=== PATIENT | female | born 1965 | race Caucasian/White ===

== ENCOUNTER 2021-08-24 14:14 | Emergency (ER) | payer SELFPAY ==
[2021-08-24] VITALS (11 sets, daily range): BP systolic 113–158; BP diastolic 68–98; PULSE 43–85; RESP 16–20; TEMP 36.8; O2SAT 94–100
--- NOTE | 2021-08-24 14:44 | W.ED.ABDPA2 ---
Documented by User: Agusto Menendez DO 08/25/21 14:32 HPI - Abdominal Pain General: Chief Complaint: Abdominal Pain Stated Complaint: FLANK PAIN Time Seen by Provider: 08/24/21 14:34 Source: patient Mode of arrival: EMS History of Present Illness: 55-year-old female comes in with flank pain she has had for the last 2 days. Is progressively worsening. She is not had any hematuria. No fever she has had some difficulty urinating. No history of kidney stones. She is given morphine in route which did relieve some of the pain. MD elicited complaint: flank pain Onset (ago): day(s) (2) Location: L flank Radiation: suprapubic Exacerbating factors: nothing Relieving factors: nothing Associated Symptoms: Reports GI cramping, nausea and poor appetite; Denies anorexia, belching, bloating, change in bowel habits, change in stool character, chills, coffee ground emesis, constipation, diarrhea, dyspepsia, dysuria, excessive flatus, fever(s), heartburn, hematochezia, hematuria, hematemesis, fecal incontinence, loose stools, melena, syncope and vomiting Review of Systems Const: Denies: fever(s), chills, fatigue or malaise ENMT: Denies: throat pain, ear or mastoid pain, nasal discharge or nasal congestion Card: Denies: syncope Resp: Denies: dyspnea, productive cough or non-productive cough GI: Reports: nausea and GI cramping; Denies: vomiting, hematemesis, coffee ground emesis, heartburn, diarrhea, constipation, bloating, belching, excessive flatus, fecal incontinence, change in bowel habits, change in stool character, hematochezia or melena : Denies: flank pain, difficulty voiding, dysuria, urinary frequency, urinary urgency or hematuria Skin/Breast: Denies: rash or pruritus PFSH ED PFSH: Medical History HTN (hypertension) Social History Smoking and tobacco status: never smoked Alcohol intake: current Alcohol intake frequency: few times a month Physical Exam Const: GENERAL APPEARANCE: cooperative and comfortable ORIENTATION/CONSCIOUSNESS: Yes awake, Yes oriented to person, Yes oriented to place and Yes oriented to time HENMT: COMMON NORMALS: normocephalic, atraumatic and hearing grossly normal bilaterally HEAD & SCALP: normocephalic and atraumatic Resp: COMMON NORMALS: normal respiratory effort, No retractions, No use of accessory muscles and clear to auscultation bilaterally AUSCULTATION: clear to auscultation bilaterally Cardio: COMMON NORMALS: regular rate, regular rhythm and No murmurs present (Cardio) RATE: regular rate RHYTHM: regular rhythm GI: COMMON NORMALS: Soft to palpation and No hepatosplenomegaly present AUSCULTATION: Yes normoactive bowel sounds PALPATION: Yes Soft to palpation, No Tenderness to palpation present (GI), No Guarding due to palpation present (GI) and Yes No hepatosplenomegaly present : BLADDER/KIDNEY EXAM: Yes CVA tenderness on the left Back/Pelvis: GENERAL BACK: Yes CVA tenderness Extremity: COMMON NORMALS: normal to inspection, capillary refill normal, no clubbing, cyanosis or edema, no calf tenderness and no pedal edema Neuro: SENSORIUM/ORIENTATION: Yes oriented to person, Yes oriented to place and Yes oriented to time Skin: COMMON NORMALS: no rashes or lesions noted GENERAL SKIN EXAM: no rashes or lesions noted Course Vital Signs: Vital signs: Vital Signs Temperature 98.3 F 08/24/21 14:51 Pulse Rate 67 08/24/21 20:36 Respiratory Rate 16 08/24/21 20:36 Blood Pressure 131/82 08/24/21 20:36 Pulse Oximetry 95 08/24/21 20:36 Oxygen Delivery Me thod 08/24/21 18:44 MDM - Abdominal Pain Medical Decision Making Care signed out to Dr. Cai at change of shift. See final notes for diagnosis and disposition. Lab Data : 08/24/21 15:59 08/24/21 15:59 Labs/Radiology: Radiology Impressions Abdomen/Pelvis CT 08/24/21 15:40 IMPRESSION: No renal stones. No acute findings. Lumbar Spine CT 08/24/21 17:25 IMPRESSION: L4-L5 broad-based disc bulge with mild spinal canal and moderate bilateral foraminal narrowing. Laboratory Results WBC 4.1 10^3/uL (4.0-10.0) 08/24/21 15:59 RBC 4.27 10^6/uL (4.1-5.3) 08/24/21 15:59 Hgb 12.4 g/dL (11.5-15.3) 08/24/21 15:59 Hct 35.7 % (37.0-47.0) L 08/24/21 15:59 MCV 83.6 fl (81-99) 08/24/21 15:59 MCH 29.0 pg (28.0-34.0) 08/24/21 15:59 MCHC 34.7 g/dL (30.0-36.0) 08/24/21 15:59 RDW 13.9 % (12.1-15.1) 08/24/21 15:59 Plt Count 265 10^3/cmm (130-400) 08/24/21 15:59 MPV 12.0 fL (7.4-10.4) H 08/24/21 15:59 Neut % (Auto) 38.7 % 08/24/21 15:59 Lymph % (Auto) 52.4 % 08/24/21 15:59 [place] % (Auto) 7.8 % 08/24/21 15:59 Eos % (Auto) 0.2 % 08/24/21 15:59 Baso % (Auto) 0.7 % 08/24/21 15:59 Neut # (Auto) 1.58 10^3/uL (1.8-7.7) L 08/24/21 15:59 Lymph # (Auto) 2.2 10^3/uL (0.8-4.8) 08/24/21 15:59 [place] # (Auto) 0.3 10^3/uL (0.2-0.9) 08/24/21 15:59 Eos # (Auto) 0.0 10^3/uL (0.0-0.8) 08/24/21 15:59 Baso # (Auto) 0.0 10^3/uL (0.0-0.1) 08/24/21 15:59 Nucleated RBC % (auto) 0 % 08/24/21 15:59 Nucleated RBCs # 0.0 /100WBC 08/24/21 15:59 Sodium 142 mmol/L (136-145) 08/24/21 15:59 Potassium 3.2 mmol/L (3.5-5.1) L 08/24/21 15:59 Chloride 106 mmol/L (98-107) 08/24/21 15:59 Carbon Dioxide 24 mmol/L (22-29) 08/24/21 15:59 Anion Gap 15.2 (5-19) 08/24/21 15:59 BUN 10 mg/dL (6-20) 08/24/21 15:59 Creatinine 0.7 mg/dL (0.5-0.9) 08/24/21 15:59 GFR Calculation 87.2 mL/min (90-130) L 08/24/21 15:59 Glucose 91 mg/dL (65-115) 08/24/21 15:59 Calculated Osmolality 293 mOsm/kg (285-295) 08/24/21 15:59 Calcium 9.2 mg/dL (8.5-10.5) 08/24/21 15:59 Total Bilirubin 0.4 mg/dL (0.15-1.2) 08/24/21 15:59 AST 14 U/L (0-32) 08/24/21 15:59 ALT 22 U/L (0-33) 08/24/21 15:59 Alkaline Phosphatase 69 IU/L (35-105) 08/24/21 15:59 Total Protein 6.3 g/dL (6.6-8.7) L 08/24/21 15:59 Albumin 4.0 g/dL (3.5-5.2) 08/24/21 15:59 Globulin 2.3 g/dL (1.3-4.6) 08/24/21 15:59 Urine Color Yellow (Yellow) 08/24/21 16:55 Urine Appearance Clear (CLEAR) 08/24/21 16:55 Urine pH 7 (5-7) 08/24/21 16:55 Ur Specific [place] 1.010 (1.005-1.030) 08/24/21 16:55 Urine Protein Neg (Negative) 08/24/21 16:55 Urine Glucose (UA) Norm (Normal) 08/24/21 16:55 Urine Ketones 1+ (Negative) H 08/24/21 16:55 Urine Blood Neg (Negative) 08/24/21 16:55 Urine Nitrate Negative (Negative) 08/24/21 16:55 Urine Bilirubin Neg (Negative) 08/24/21 16:55 Urine Urobilinogen Norm mg/dL (Negative) 08/24/21 16:55 Ur Leukocyte Esterase 2+ (Negative) H 08/24/21 16:55 Urine RBC 0-4 /hpf (0-2) H 08/24/21 16:55 Urine WBC 5-10 /hpf (0-5) H 08/24/21 16:55 Ur Squamous Epith Cells 5-10 /hpf (0-5) H 08/24/21 16:55 Amorphous Sediment Not Reportable 08/24/21 16:55 Urine Bacteria Trace /hpf (NONE) 08/24/21 16:55 Urine Mucus 1+ /hpf 08/24/21 16:55 Discharge Plan Discharge Patient Disposition: Home Clinical Impression: Bursitis, trochanteric, Left lumbar radiculopathy, Back pain, Hypokalemia Condition: Stable Prescriptions: New oxycodone 5 mg tablet 5 mg PO Q4H PRN (Reason: pain) Qty: 14 0RF prednisone 20 mg tablet See Rx Instructions .ROUTE .COMPLEX Qty: 30 0RF Rx Instructions: 60 mg daily for 5 days then 40 daily for 5 days then 20 daily for 5 days No Action atorvastatin 20 mg tablet 20 mg PO BEDTIME naproxen 375 mg Tablet 750 mg PO QAM PRN (Reason: Pain) amlodipine 5 mg tablet 5 mg PO QAM amitriptyline 25 mg tablet 25 mg PO BEDTIME PRN (Reason: nerve pain) omeprazole 20 mg capsule,delayed release(DR/EC) 20 mg PO QAM losartan-hydrochlorothiazide 100-12.5 mg tablet 1 tab PO QAM [place] Back and Body 500-32.5 mg Tablet 2 tab PO QAM PRN (Reason: Pain) Discharge Orders: Discharge ED (Routine); Ordered 08/24/21 Ordered By: Jae Cai Referrals: Agusto Menendez, DO [Emergency Department] - Discharge Diet: Usual diet Discharge Activity: Increase activity as tolerated Patient Instructions: Hip Bursitis (ED), Acute Low Back Pain (ED), Lumbar Radiculopathy (ED), Opioid Safety Activity Restrictions/Additional Instructions: Thank you for visiting the emergency department. You were seen and evaluated for back pain and lower extremity pain. The exact cause of your symptoms is unclear though likely related to lumbar radiculopathy. CT did show L4-L5 broad-based disc bulge with mild spinal canal and moderate bilateral foraminal narrowing. I recommend follow-up with your primary care provider for consideration of PT referral and/or further management with pain management for consideration of injections. They can also refer you to for assessment with Dr. Lundy who is an orthopedic spine surgeon. I will prescribe a taper of steroids as well as oxycodone. You should continue to take Tylenol and ibuprofen. Please do not exceed the daily recommended dosage and please keep in mind that many namebrand medications contain the same active ingredient/class of medications and should be used cautiously. Opiates can cause sedation, do not combine with other sedating substances. Additionally do not drive or operate machinery while under the influence of opioids. Common side effect is constipation and I recommend daily [id number] stool softener while taking this. Please return to the emergency department for uncontrolled pain, any new neurologic symptoms, or anything else that you are concerned about and feel needs emergency department evaluation. Sign Out Sign Out Data: Patient Sign Out occurred on 08/24/21 at 18:16. Patient's care was discussed, and care was transferred from to Jae Cai MD. Coding Level of Care Code ED Health And Physical Education Teacher for Chg Fwd Exam Comprehensive Documented by User: Jae Cai MD 09/03/21 07:28 HPI - Abdominal Pain General: Chief Complaint: Abdominal Pain Stated Complaint: FLANK PAIN Time Seen by Provider: 08/24/21 14:34 [facility] ED PFSH: Medical History HTN (hypertension) Social History Smoking and tobacco status: never smoked Alcohol intake: current Alcohol intake frequency: few times a month Course Vital Signs: Vital signs: Vital Signs Temperature 98.3 F 08/24/21 14:51 Pulse Rate 67 08/24/21 20:36 Respiratory Rate 16 08/24/21 20:36 Blood Pressure 131/82 07/19/22 20:36 Pulse Oximetry 95 08/24/21 20:36 Oxygen Delivery Me thod 08/24/21 18:44 MDM - Abdominal Pain Medical Decision Making Care signed out to Dr. Cai at change of shift. See final notes for diagnosis and disposition. Patient care handoff received from Dr. Menendez pending completion of ED evaluation. Labs notable for no leukocytosis, normal hemoglobin. Mild hypokalemia noted on metabolic panel. Urinalysis with squamous epithelial contamination. CT abdomen and pelvis for renal stone negative for acute pathology. CT L-spine notable for L4-L5 broad-based disc bulge with mild spinal canal and moderate bilateral foraminal narrowing which likely is significant contributing to patient's symptoms. No red flag symptoms regarding spinal cord compression. Patient improved with symptomatic treatment. Results of ED evaluation discussed with the patient including symptomatic cares, return precautions, and follow-up plan. Satisfactory for outpatient management. Lab Data : 08/24/21 15:59 08/24/21 15:59 Labs/Radiology: Radiology Impressions Abdomen/Pelvis CT 08/24/21 15:40 IMPRESSION: No renal stones. No acute findings. Lumbar Spine CT 08/24/21 17:25 IMPRESSION: L4-L5 broad-based disc bulge with mild spinal canal and moderate bilateral foraminal narrowing. Laboratory Results WBC 4.1 10^3/uL (4.0-10.0) 08/24/21 15:59 RBC 4.27 10^6/uL (4.1-5.3) 08/24/21 15:59 Hgb 12.4 g/dL (11.5-15.3) 08/24/21 15:59 Hct 35.7 % (37.0-47.0) L 08/24/21 15:59 MCV 83.6 fl (81-99) 08/24/21 15:59 MCH 29.0 pg (28.0-34.0) 08/24/21 15:59 MCHC 34.7 g/dL (30.0-36.0) 08/24/21 15:59 RDW 13.9 % (12.1-15.1) 08/24/21 15:59 Plt Count 265 10^3/cmm (130-400) 08/24/21 15:59 MPV 12.0 fL (7.4-10.4) H 08/24/21 15:59 Neut % (Auto) 38.7 % 08/24/21 15:59 Lymph % (Auto) 52.4 % 08/24/21 15:59 [place] % (Auto) 7.8 % 08/24/21 15:59 Eos % (Auto) 0.2 % 08/24/21 15:59 Baso % (Auto) 0.7 % 08/24/21 15:59 Neut # (Auto) 1.58 10^3/uL (1.8-7.7) L 08/24/21 15:59 Lymph # (Auto) 2.2 10^3/uL (0.8-4.8) 08/24/21 15:59 [place] # (Auto) 0.3 10^3/uL (0.2-0.9) 08/24/21 15:59 Eos # (Auto) 0.0 10^3/uL (0.0-0.8) 08/24/21 15:59 Baso # (Auto) 0.0 10^3/uL (0.0-0.1) 08/24/21 15:59 Nucleated RBC % (auto) 0 % 08/24/21 15:59 Nucleated RBCs # 0.0 /100WBC 08/24/21 15:59 Sodium 142 mmol/L (136-145) 08/24/21 15:59 Potassium 3.2 mmol/L (3.5-5.1) L 08/24/21 15:59 Chloride 106 mmol/L (98-107) 08/24/21 15:59 Carbon Dioxide 24 mmol/L (22-29) 08/24/21 15:59 Anion Gap 15.2 (5-19) 08/24/21 15:59 BUN 10 mg/dL (6-20) 08/24/21 15:59 Creatinine 0.7 mg/dL (0.5-0.9) 08/24/21 15:59 GFR Calculation 87.2 mL/min (90-130) L 08/24/21 15:59 Glucose 91 mg/dL (65-115) 08/24/21 15:59 Calculated Osmolality 293 mOsm/kg (285-295) 08/24/21 15:59 Calcium 9.2 mg/dL (8.5-10.5) 08/24/21 15:59 Total Bilirubin 0.4 mg/dL (0.15-1.2) 08/24/21 15:59 AST 14 U/L (0-32) 08/24/21 15:59 ALT 22 U/L (0-33) 08/24/21 15:59 Alkaline Phosphatase 69 IU/L (35-105) 08/24/21 15:59 Total Protein 6.3 g/dL (6.6-8.7) L 08/24/21 15:59 Albumin 4.0 g/dL (3.5-5.2) 08/24/21 15:59 Globulin 2.3 g/dL (1.3-4.6) 08/24/21 15:59 Urine Color Yellow (Yellow) 08/24/21 16:55 Urine Appearance Clear (CLEAR) 08/24/21 16:55 Urine pH 7 (5-7) 08/24/21 16:55 Ur Specific [place] 1.010 (1.005-1.030) 08/24/21 16:55 Urine Protein Neg (Negative) 08/24/21 16:55 Urine Glucose (UA) Norm (Normal) 08/24/21 16:55 Urine Ketones 1+ (Negative) H 08/24/21 16:55 Urine Blood Neg (Negative) 08/24/21 16:55 Urine Nitrate Negative (Negative) 08/24/21 16:55 Urine Bilirubin Neg (Negative) 08/24/21 16:55 Urine Urobilinogen Norm mg/dL (Negative) 08/24/21 16:55 Ur Leukocyte Esterase 2+ (Negative) H 08/24/21 16:55 Urine RBC 0-4 /hpf (0-2) H 08/24/21 16:55 Urine WBC 5-10 /hpf (0-5) H 08/24/21 16:55 Ur Squamous Epith Cells 5-10 /hpf (0-5) H 08/24/21 16:55 Amorphous Sediment Not Reportable 08/24/21 16:55 Urine Bacteria Trace /hpf (NONE) 08/24/21 16:55 Urine Mucus 1+ /hpf 08/24/21 16:55 Discharge Plan Discharge Patient Disposition: Home Clinical Impression: Bursitis, trochanteric, Left lumbar radiculopathy, Back pain, Hypokalemia Condition: Stable Prescriptions: New oxycodone 5 mg tablet 5 mg PO Q4H PRN (Reason: pain) Qty: 14 0RF prednisone 20 mg tablet See Rx Instructions .ROUTE .COMPLEX Qty: 30 0RF Rx Instructions: 60 mg daily for 5 days then 40 daily for 5 days then 20 daily for 5 days No Action atorvastatin 20 mg tablet 20 mg PO BEDTIME naproxen 375 mg Tablet 750 mg PO QAM PRN (Reason: Pain) amlodipine 5 mg tablet 5 mg PO QAM amitriptyline 25 mg tablet 25 mg PO BEDTIME PRN (Reason: nerve pain) omeprazole 20 mg capsule,delayed release(DR/EC) 20 mg PO QAM losartan-hydrochlorothiazide 100-12.5 mg tablet 1 tab PO QAM [place] Back and Body 500-32.5 mg Tablet 2 tab PO QAM PRN (Reason: Pain) Discharge Orders: Discharge ED (Routine); Ordered 08/24/21 Ordered By: Jae Cai Referrals: Agusto Menendez DO [Emergency Department] - Discharge Diet: Usual diet Discharge Activity: Increase activity as tolerated Patient Instructions: Hip Bursitis (ED), Acute Low Back Pain (ED), Lumbar Radiculopathy (ED), Opioid Safety Activity Restrictions/Additional Instructions: Thank you for visiting the emergency department. You were seen and evaluated for back pain and lower extremity pain. The exact cause of your symptoms is unclear though likely related to lumbar radiculopathy. CT did show L4-L5 broad-based disc bulge with mild spinal canal and moderate bilateral foraminal narrowing. I recommend follow-up with your primary care provider for consideration of PT referral and/or further management with pain management for consideration of injections. They can also refer you to for assessment with Dr. Lundy who is an orthopedic spine surgeon. I will prescribe a taper of steroids as well as oxycodone. You should continue to take Tylenol and ibuprofen. Please do not exceed the daily recommended dosage and please keep in mind that many namebrand medications contain the same active ingredient/class of medications and should be used cautiously. Opiates can cause sedation, do not combine with other sedating substances. Additionally do not drive or operate machinery while under the influence of opioids. Common side effect is constipation and I recommend daily [id number] stool softener while taking this. Please return to the emergency department for uncontrolled pain, any new neurologic symptoms, or anything else that you are concerned about and feel needs emergency department evaluation. Sign Out Sign Out Data: Patient Sign Out occurred on 08/24/21 at 18:16. Patient's care was discussed, and care was transferred from to Jae Cai MD. Coding Level of Care Code ED Health And Physical Education Teacher for Chg Fwd Exam Comprehensive
--- NOTE | 2021-08-24 15:40 | CTR_ITS ---
PROCEDURE INFORMATION: Exam: CT Abdomen And Pelvis Without Contrast Exam date and time: 08/24/2021 4:02 PM Age: 55 years old Clinical indication: Pain; Other: Left flank x 3 days; Additional info: Flank pain TECHNIQUE: Imaging protocol: Computed tomography of the abdomen and pelvis without contrast. Radiation optimization: All CT scans at this facility use at least one of these dose optimization techniques: automated exposure control; mA and/or kV adjustment per patient size (includes targeted exams where dose is matched to clinical indication); or iterative reconstruction. COMPARISON: [facility] Lumbar Spine 2-3 views 12/20/2018 12:07 PM RADIATION DOSE METRICS: Total DLP (mGy-cm): 1104.83 FINDINGS: Liver: Normal. No mass. Gallbladder and bile ducts: Normal. No calcified stones. No ductal dilation. Pancreas: Normal. No ductal dilation. Spleen: Normal. No splenomegaly. Adrenal glands: Normal. No mass. Kidneys and ureters: No renal stones. No hydronephrosis. Stomach and bowel: Unremarkable. No obstruction. No mucosal thickening. Appendix: No evidence of appendicitis. Intraperitoneal space: Unremarkable. No free air. No significant fluid collection. Vasculature: Unremarkable. No abdominal aortic aneurysm. Lymph nodes: Unremarkable. No enlarged lymph nodes. Urinary bladder: Unremarkable as visualized. Reproductive: Unremarkable as visualized. Bones/joints: No acute fracture. Soft tissues: Unremarkable. CT/CT kidney stone [id number] IMPRESSION: No renal stones. No acute findings.
[2021-08-24] MEDS: ondansetron 2 mg/ML SDV 2 mL 4 MG IVP (15:52)
[2021-08-24] MEDS: morphine 4 mg/mL SDV 1 mL IVP ×2 (15:53→18:05)
[2021-08-24] MEDS: sodium chloride 0.9% 1,000 ML 999 ML IV (15:56)
[2021-08-24 16:48] LABS: Alanine Aminotransferase 22 U/L (0-33); Alkaline Phosphatase 69 IU/L (35-105); Anion Gap 15.2 (5-19); Aspartate Amino Transferase 14 U/L (0-32); Blood Urea Nitrogen 10 mg/dL (6-20); Calcium 9.2 mg/dL (8.5-10.5); Carbon Dioxide 24 mmol/L (22-29); Chloride 106 mmol/L (98-107); Globulin 2.3 g/dL (1.3-4.6); Glomerular Filtration Rate 87.2 mL/min (90-130); Glucose 91 mg/dL (65-115); Osmolality Calculated 293 mOsm/kg (285-295); Potassium 3.2 mmol/L (3.5-5.1); Sodium 142 mmol/L (136-145); Total Bilirubin 0.4 mg/dL (0.15-1.2); Total Protein 6.3 g/dL (6.6-8.7)
[2021-08-24 17:25] LABS: Add Urine Microscopic? YES; Bilirubin Urine Neg (Negative); Blood Urine Neg (Negative); Glucose Urine UA Norm (Normal); Ketones Urine 1+ (Negative); Leukocyte Esterase Urine 2+ (Negative); Nitrate Urine Negative (Negative); Protein Urine Neg (Negative); Urine Appearance Clear (CLEAR); Urine Color Yellow (Yellow); Urobilinogen Urine Norm (Negative); pH Urine 7 (5-7)
--- NOTE | 2021-08-24 17:25 | CTR_ITS ---
PROCEDURE INFORMATION: Exam: CT Lumbar Spine Without Contrast Exam date and time: 08/24/2021 4:02 PM Age: 55 years old Clinical indication: Patient HX: C/O low back pain. ; Additional info: Radicular pain TECHNIQUE: Imaging protocol: Computed tomography of the lumbar spine without contrast. Radiation optimization: All CT scans at this facility use at least one of these dose optimization techniques: automated exposure control; mA and/or kV adjustment per patient size (includes targeted exams where dose is matched to clinical indication); or iterative reconstruction. COMPARISON: [facility] Lumbar Spine 2-3 views 12/20/2018 12:07 PM RADIATION DOSE METRICS: Total DLP (mGy-cm): 1187.04 FINDINGS: Bones/joints: No acute fracture. Normal alignment. L1-L2: No significant disc protrusion. No severe spinal canal stenosis. No significant neural foraminal narrowing. L2-L3: No significant disc protrusion. No severe spinal canal stenosis. No significant neural foraminal narrowing. L3-L4: No significant disc protrusion. No severe spinal canal stenosis. No significant neural foraminal narrowing. L4-L5: L4-L5 broad-based disc bulge with mild spinal canal and moderate bilateral foraminal narrowing. L5-S1: No significant disc protrusion. No severe spinal canal stenosis. No significant neural foraminal narrowing. Soft tissues: Unremarkable. CT/CT lumbar spine recon [id number] IMPRESSION: L4-L5 broad-based disc bulge with mild spinal canal and moderate bilateral foraminal narrowing.
[2021-08-24 17:26] LABS: Bacteria Urine TRACE /hpf; Mucus Urine 1+ /hpf; RBC Urine 0-4 /hpf (0-2)
[2021-08-24 17:28] LABS: Add Urine Culture? Yes
[2021-08-24] MEDS: dexamethasone 10 mg/mL INJ IVP (18:00)
[2021-08-24] MEDS: orphenadrine 30 mg/mL Inj 2 mL 60 MG IVP (18:12)
[2021-08-24 18:43] LABS: Basophils % 0.7 %; Eosinophils % 0.2 %; Hematocrit 35.7 % (37.0-47.0); Hemoglobin 12.4 g/dL (11.5-15.3); Lymphocytes # 2.2 10^3/uL (0.8-4.8); Lymphocytes % 52.4 %; Mean Corpuscular HGB Conc 34.7 g/dL (30.0-36.0); Mean Corpuscular Volume 83.6 fl (81-99); Monocytes # 0.3 10^3/uL (0.2-0.9); Monocytes % 7.8 %; Neutrophils # 1.58 10^3/uL (1.8-7.7); Neutrophils % 38.7 %; Nucleated Red Blood Cells % 0 %; Platelet Count 265 10^3/cmm (130-400); Red Blood Count 4.27 10^6/uL (4.1-5.3); Red Cell Distribution Width 13.9 % (12.1-15.1); White Blood Count 4.1 10^3/uL (4.0-10.0)
[2021-08-24] MEDS: potassium chloride ER 20 mEq Tablet 40 MEQ PO (18:43)
[2021-08-24] MEDS: oxyCODONE 5 mg IR Tab/Cap 10 MG PO (20:34)
== END 2021-08-24 20:37 | disposition home or self-care (01) ==
PROVIDERS: Family Medicine; Emergency Provider Emergency Medicine
DX: M70.62 Trochanteric bursitis, left hip (principal); M54.16 Radiculopathy, lumbar region; E87.6 Hypokalemia; I10 Essential (primary) hypertension
CPT/HCPCS: 74176; 80048; 80053; 81001; 85025; 87086; 96361; 96374; 96375; 96376; 99285; J1100; J2270; J2360; J2405; J7030

== ENCOUNTER 2022-06-24 10:20 | Emergency (ER) | payer SELFPAY ==
[2022-06-24 10:26] VITALS: BP 119/77; PULSE 110; RESP 16; TEMP 37.5; O2SAT 95; BMI 37.8
[2022-06-24 12:31] LABS: Basophils % 0.6 %; Hematocrit 40.3 % (37.0-47.0); Hemoglobin 13.1 g/dL (11.5-15.3); Lymphocytes # 0.4 10^3/uL (0.8-4.8); Lymphocytes % 22.2 %; Mean Corpuscular HGB Conc 32.5 g/dL (30.0-36.0); Mean Corpuscular Hemoglobin 27.5 pg (28.0-34.0); Mean Corpuscular Volume 84.7 fl (81-99); Monocytes # 0.1 10^3/uL (0.2-0.9); Neutrophils # 1.18 10^3/uL (1.8-7.7); Neutrophils % 70.6 %; Nucleated Red Blood Cells % 0 %; Platelet Count 104 10^3/cmm (130-400); Red Blood Count 4.76 10^6/uL (4.1-5.3); Red Cell Distribution Width 14.1 % (12.1-15.1); White Blood Count 1.7 10^3/uL (4.0-10.0)
[2022-06-24 12:46] LABS: Alanine Aminotransferase 57 U/L (0-33); Albumin Level 3.8 g/dL (3.5-5.2); Alkaline Phosphatase 93 U/L (35-105); Anion Gap 15.7 (5-19); Aspartate Amino Transferase 67 U/L (0-32); Blood Urea Nitrogen 11 mg/dL (6-20); Calcium 8.5 mg/dL (8.5-10.5); Carbon Dioxide 22 mmol/L (22-29); Chloride 98 mmol/L (98-107); Globulin 2.8 g/dL (1.3-4.6); Glomerular Filtration Rate 57.6 mL/min (90-130); Glucose 101 mg/dL (65-115); Osmolality Calculated 274 mOsm/kg (285-295); Potassium 3.7 mmol/L (3.5-5.1); Sodium 132 mmol/L (136-145); Total Bilirubin 0.3 mg/dL (0.15-1.2); Total Protein 6.6 g/dL (6.6-8.7)
[2022-06-24 12:47] LABS: Creatinine Clr Calc Pharmacy 72.9886
== END 2022-06-24 12:33 | disposition left against medical advice (07) ==
PROVIDERS: Emergency Medicine; Emergency Provider Family Medicine; PCP Nurse Practitioner Family
DX: Z53.21 Procedure and treatment not carried out due to patient leaving prior to being seen by health care provider (principal)
CPT/HCPCS: 36415; 80053; 85025